=== PATIENT | male | born 1970 | race Caucasian/White ===

== ENCOUNTER 2017-06-27 13:45 | Outpatient (RCR) | payer OTHER ==
--- NOTE | 2017-05-06 16:31 | PT INITIAL EVALUATION ---
MEDICAL DIAGNOSIS: Right hip pain, Strain of R shoulder, initial encounter TREATMENT DIAGNOSIS: same DATE OF ONSET: 01/29/17 SUBJECTIVE: Leo presents to physical therapy with complaints of R hip pain and R shoulder strain that occurred in two different incidents. The shoulder occurred while playing on monkey bars in January and the R hip pain started in 2010, when he was sprinting in the dark and tripped and fell resulting in R hip pain, R shoulder pain, and L elbow pain. He reports that an MRI in 2010 revealed full tears in L elbow, SLAP lesion in R shoulder, and did not receive an MRI for the R hip. He states that the R hip, L elbow, and R shoulder were improving with decreased pain and improved function and most of the time his R hip and L elbow do not bother him. He states that he currently run 6 miles a day 5-6 days a weeks without too much troubles. He states that he did not have any troubles with his R shoulder until he did something on the monkey bars in January 2017. He states that the R shoulder is his main concern and would like to treat the shoulder and have his R hip looked at as well to see what is going one with his hip to prevent further damage. He states that his R shoulder typically does not bother him and if it does he is able to move it a certain direction until he hears a pop and then it feels better. He states that he cannot determine a movement that causes the R shoulder to have increased pain. He reports that he was given an antiinflammatory last week, which has significantly decreased his pain. He rates 0/10 resting pain with R shoulder and R hip. He does report numbness occurring at the 4th and 5th digits occurs when it "pops out." The hip increases pain when he bends forward reaching for an object and usually pops causing an increase in pain. Pain location is Posterior GH joint line and described as sore, achy. Pain scale is 0 on a ten point pain scale. REHAB PROBLEM LIST: Increased Pain Decreased ROM Decreased Strength Decreased Endurance Decreased Function PREVIOUS MEDICAL HISTORY: See EMR OCCUPATION: [employer] with OBJECTIVE: Posture: He demonstrates excellent postural mechanics ROM: R shoulder full AROM into flexion, extension, abduction, scaption, IR, and ER: however, he has end range pain with flexion, scaption, and abduction. R shoulder PROM: full PROM with R shoulder into flexion, abduction, extension, scaption, IR, and ER, however, he has empty end feel with abduction. Strength: R shoulder: flexion, scaption, IR, ER: 4+/5 with no pain. Abduction: 4 /5 with pain. Palpation: TTP: over insertional point of supraspinatus and posterior superior joint line (labrum). Sensation: C2-T2 dermatomes: WNL's bilaterally Special Tests: (-): fermin-kenia, painful arc, multi-instability (sulcus sign ), open can, empty can, neer's, and yocums. (+): anterior/posterior drawer test , apprehension, and relocation, ulnar entrapment. Mobility: Independent Gait: Normal gait mechanics and normal glenohumeral rhythm ASSESSMENT: Leo will benefit from skilled physical therapy addressing the listed impairments to improve function and return to prior level of function. Short Term Goals 4 weeks: Pt will be able to improve strength with R shoulder abduction, IR, and ER from baseline to 5/5 with 0/10 pain to improve function and QOL. 4 weeks : Pt will be able to perform full AROM into R shoulder scaption and abduction with 0/10 end range pain to improve function and QOL. 4 weeks: Pt will be able to improve R shoulder extension with IR AROM from baseline to equal to L shoulder to improve function and QOL. Patient's Goals prevent surgery and strengthening the R shoulder PLAN: Patient to be seen for Manual Therapy/STM/MET Strengthening/condition Ice/Heat Spinal Stabilization Ultrasound Work Hardening/Cond Stretching Iontophoresis Neuromuscular Re-ed Closed Chain Program Electrical Stim Home Exercise Program Therapeutic Activities 2x/Week for 4-6 weeks If you have any questions, comments, or concerns about this report or plan, please contact me at . Thank you, Yoshi Rai, PT, DPT MTDD
[~2017-06-27 13:45] MED LIST: DOXY-179 PO; MELO-207 PO
[2017-07-29] MEDS ORDERED: OSE75 PO (10:05)
[2017-07-29] MEDS ORDERED: MELO-207 PO (10:05)
== END 2017-08-04 ==
LOC: PT 13:45
PROVIDERS: ATTEND Internal Medicine
DX: S46.911A Strain of unspecified muscle, fascia and tendon at shoulder and upper arm level, right arm, initial encounter (principal); M25.551 Pain in right hip; R20.2 Paresthesia of skin; W09.8XXA Fall on or from other playground equipment, initial encounter; W18.40XA Slipping, tripping and stumbling without falling, unspecified, initial encounter
CPT/HCPCS: 97162

== ENCOUNTER 2017-09-15 09:45 | Outpatient (RCR) | payer OTHER ==
--- NOTE | 2017-09-09 17:24 | PT PLAN OF CARE ---
Physician: Krishna Williamson MD Patient is being seen: 1-2x/week Therapist: Yoshi Rai, PT, DPT Medical Diagnosis: Right hip pain, Strain of R shoulder, initial encounter Treatment Diagnosis: same, L shoulder pain Date of Onset: 01/29/17 Date of Initial Evaluation: 05/06/17 Date patient was last seen: 09/09/17 Number of treatments: 7 Number of cancellations/No shows: 0 INTERVENTIONS: Manual Therapy/STM/MET Strengthening/condition Ice/Heat Spinal Stabilization Ultrasound Work Hardening/Cond Stretching Iontophoresis Neuromuscular Re-ed Closed Chain Program Electrical Stim Home Exercise Program Therapeutic Activities GOALS: 4 weeks: Pt will be able to improve strength with R and L shoulder abduction, IR, and ER from baseline to 5/5 with 0/10 pain to improve function and QOL. 4 weeks: Pt will be able to perform full AROM into R shoulder and L shoulder scaption and abduction with 0/10 end range pain to improve function and QOL. 4 weeks: Pt will be able to improve R shoulder and L shoulder extension with IR AROM from baseline to equal to each shoulder to improve function and QOL. PATIENT'S GOAL: prevent surgery and strengthening the R shoulder and L shoulder Status of Patient's Goals: Progressing Patient Compliance: Good Prognosis: Excellent Reasons for continuing therapy: This is a progress note for Leo Leary. He reports that his R hip is doing well and has completely resolved. 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 He reports that he has more pain in his L shoulder than his R shoulder. He denies any resting pain. He reports that he rested his B shoulders and stopped doing pushups. As a result, they have started to feel better. He demonstrated a directional preference with B shoulder extension and IR, however , it did not completely resolve his issue but it did improve the end range pain symptoms that he was feeling. As a result, I believe that it will continue to get better with repeated shoulder extension and IR. Furthermore, it appears that the signs and symptoms are consistent with derangement that should improve quickly as he performs his specific exercise to remove the derangement. As a result, he will benefit from continued PT to address the listed impairments to improve function and QOL for 2x/week for 4 weeks. OBJECTIVE: Posture: He demonstrates excellent postural mechanics ROM: R shoulder full PROM and AROM into flexion, extension, abduction, scaption , IR, and ER: however, he has end range pain with flexion and abduction with abduction more painful than flexion. L shoulder PROM and AROM : full PROM and AROM with L shoulder into flexion, abduction, extension, scaption, IR, and ER, however, he has empty end feel with abduction, flexion, ER with flexion being more painful than abduction. Strength: R and L shoulder: flexion, scaption, IR, ER: 4+/5 with no pain. Abduction: 4/5 with pain. Palpation: TTP: over insertional point of supraspinatus and posterior superior joint line (labrum). Sensation: C2-T2 dermatomes: WNL's bilaterally Special Tests: (-): fermin-kenia, painful arc, multi-instability (sulcus sign ), open can, empty can, neer's, and yocums (on R shoulder). (+): anterior/ posterior drawer test, apprehension, and relocation (on R shoulder). (+) fermin-kenia, painful arc, multi-instability (sulcus sign), open can, empty can, neer's, and yocums (on L shoulder). Mobility: Independent Gait: Normal gait mechanics and normal glenohumeral rhythm If you have any questions, please contact me at [phone]. Thank you, Yoshi Rai, PT, DPT MTDD
[~2017-09-15 09:45] MED LIST changes: +OSE75 PO
== END 2017-09-15 18:00 | disposition home or self-care (01) ==
LOC: PT 09:45
PROVIDERS: ATTEND Internal Medicine
DX: S46.911A Strain of unspecified muscle, fascia and tendon at shoulder and upper arm level, right arm, initial encounter (principal); M25.551 Pain in right hip; R20.2 Paresthesia of skin; W09.8XXA Fall on or from other playground equipment, initial encounter; W18.40XA Slipping, tripping and stumbling without falling, unspecified, initial encounter; M25.512 Pain in left shoulder

== ENCOUNTER → 2017-11-17 | Outpatient (CLI) | payer OTHER ==
--- NOTE | 2017-11-17 15:46 | RADIOLOGY IMAGING REPORT ---
FACILITY: [facility] - [place] PATIENT NAME: Leo Leary : 1970 MR: [id number] V: [id number] EXAM DATE: ORDERING PHYSICIAN: NEAL HAMM TECHNOLOGIST: Location: [facility] Patient: Leo Leary : 1970 Visit/Account:[id number] Date of Sevice: 11/17/2017 Exam type: ANKLE 3 VIEW MIN RIGHT History: Ankle sprain x6 months, Comparison: None. Findings: There is mild soft tissue spine over the posterior aspect right ankle. There is no evidence of acute fracture or dislocation. Ankle mortise appears intact. No significant arthritic changes seen IMPRESSION: 1. Mild soft tissue swelling over the posterior aspect right ankle although no evidence of acute fra cture or dislocation seen Report Dictated By: Stefanie Richards MD at 11/17/2017 3:40 PM Report E-Signed By: Stefanie Richards MD at 11/17/2017 3:41 PM WSN:[email or web address]
== END ==
LOC: RAD 14:19
PROVIDERS: ATTEND Internal Medicine
DX: M25.471 Effusion, right ankle (principal)

== ENCOUNTER → 2018-05-17 | Outpatient (CLI) | payer OTHER ==
[~2018-05-17] MED LIST changes: +FLU60VIA41 IM
[2018-05-17 07:46] LABS: PLATELET COUNT, AUTOMATED 182 K/uL (150-450)
[2018-05-17 08:33] LABS: LDL CHOLESTEROL 114 mg/dl
== END ==
LOC: LAB 07:31
PROVIDERS: ATTEND Internal Medicine
DX: Z00.00 Encounter for general adult medical examination without abnormal findings (principal); M25.511 Pain in right shoulder; G47.9 Sleep disorder, unspecified
CPT/HCPCS: 36415; 81001; 82040; 82247; 82310; 82374; 82435; 82465; 82565; 82947; 83718; 84075; 84132; 84153; 84155; 84295; 84443; 84450; 84460; 84478; 84520; 85025

== ENCOUNTER → 2018-06-29 | Outpatient (CLI) | payer OTHER | LOC: RESP 20:57 | PROVIDERS: ATTEND Internal Medicine | DX: G47.30 Sleep apnea, unspecified (principal); G47.61 Periodic limb movement disorder ==

== ENCOUNTER 2018-11-02 00:40 | Day surgery (SDC) | payer OTHER ==
[2018-11-01 14:42] VITALS: BP 114/72
[~2018-11-02] VITALS: Ht 180.3 cm; Wt 71.2 kg
[2018-11-02] VITALS (8 sets, daily range): BP systolic 114–129; BP diastolic 72–97
[2018-11-02] MEDS ORDERED: LIDOCAINE 2% IV 100 MG/5ML SYR ONE (11:14)
[2018-11-02] MEDS ORDERED: fentaNYL CITR 100 MCG/2 ML AMP ONE ×3 (11:14→13:05)
[2018-11-02] MEDS ORDERED: PROPOFOL EMUL(*) 10MG/ML 20 ML 20 ML ONE (11:15)
[2018-11-02 11:44] LABS: PLATELET COUNT, AUTOMATED 195 K/uL (150-450)
[2018-11-02] MEDS ORDERED: ROPIVACAINE 0.5% 20 ML VIAL ONE (11:56)
[2018-11-02] MEDS ORDERED: NORMOSOL R SOLN(*) 1000 ML BAG 1,000 ML IV PRN (12:15)
[2018-11-02] MEDS ORDERED: LIDOCAINE/SOD BICARB 8.4% SYR ID ONE (12:15)
[2018-11-02] MEDS ORDERED: MIDAZOLAM 2 MG/2 ML VIAL IVP PRN (12:15)
[2018-11-02] MEDS ORDERED: FAMOTIDINE 20 MG TAB PO ONE (12:15)
[2018-11-02] MEDS ORDERED: PROPOFOL EMUL(*) 10MG/ML 20 ML 40 ML ONE (12:20)
[2018-11-02] MEDS ORDERED: ONDANSETRON 4 MG/2 ML VIAL ONE (13:06)
[2018-11-02] MEDS ORDERED: DEXAMETHASONE SOD 4 MG/ML VIAL ONE (13:06)
[2018-11-02] MEDS ORDERED: TRAM-420 PO (13:49)
[2018-11-02] MEDS ORDERED: DOCU-416 PO (13:49)
--- NOTE | 2018-11-02 13:51 | Short(Outpt) Discharge Summary ---
Discharge Summary Reason for Hosp/Final Diag: (1) Subcutaneous nodule Status: Chronic Hospital Course & Plan: 4 subcutaneous nodules removed without problems. Departure Discharge to: Home, Self Care Discharge Instructions Home Meds Active Scripts Docusate Sodium (COLACE) 100 Mg Capsule, 1 CAP PO BID, #30 CAP 0 Refills TAKE WITH A FULL GLASS OF WATER Prov:PORTIA CHONG MD 11/02/18 Tramadol Hcl (TRAMADOL HCL) 50 Mg Tablet, 1 TAB PO Q4H PRN for PAIN, #20 TAB 0 Refills Prov:PORTIA CHONG MD 11/02/18 Follow up Referrals: General Surgery - 11/15/18 @ Surgery, General with PORTIA CHONG MD You have a follow up appointment scheduled with Dr. Chong on 11/15/18, at 3:45pm. Diet: Regular Activity: As Tolerated Special Instructions: You may remove the white surgical dressings on 11/04/18, then you can shower. After showering, leave the incisions open to air but leave the steristrips in place until they fall off on their own. Do not immerse the incisions for 2 weeks. PORTIA CHONG MD Nov 02, 2018 13:51
--- NOTE | 2018-11-02 13:59 | Post Operative Progress Note ---
Post Operative Progress Note Date: Nov 02, 2018 Time: 13:51 Surgeon: Pradeep Dictation number: [id number] Anesthesia: GETA by Dr. Carmona Pre-Op Diagnosis: Subcutaneous nodules x4 (left breast, left costal margin, left hip, left buttock) Post-Op Diagnosis: TONEY Findings: C/W lipomas Procedure(s): Excision of 4 subcutaneous nodules Specimen Removed:(May be N/A): 1) subcutaneous nodule, left breast 2) " " left costal margin 3) " " left hip 4) " " left buttock Complications: None Fluids: See anesthesia record Estimated Blood Loss: Minimal Date OP Note Dictated: Nov 02, 2018 Time OP Note Dictated: 13:54 PORTIA CHONG MD Nov 02, 2018 13:59
--- NOTE | 2018-11-02 14:16 | OPERATIVE REPORT 1 ---
EVENT DATE: November 02, 2018 SURGEON: Lavon Fernández MD ANESTHESIOLOGIST: Santi Carmona MD ANESTHESIA: General endotracheal. PREOPERATIVE DIAGNOSIS Subcutaneous nodules times 4. POSTOPERATIVE DIAGNOSIS Subcutaneous nodules times 4. PROCEDURE PERFORMED Excision of four subcutaneous nodules, one from the left breast, one from the left costal margin, one from the left hip, one from the left buttock. COMPLICATIONS None. CONDITIONS Stable. ESTIMATED BLOOD LOSS Minimal. INDICATIONS This is a 48-year-old gentleman who presented to my office with four subcutaneous nodules and he was requesting to have them removed. DESCRIPTION OF PROCEDURE The patient was brought to the operating room and on the gurney, general endotracheal anesthesia was administered. His left chest and abdomen were prepped and draped in sterile fashion. A timeout was completed. I had previously marked where the subcutaneous nodules were in the preop area with his conformation and these were the correct operative sites and then I anesthetized the skin over each nodule and then made transverse incisions that were each about 12 mm in length over each nodule. I dissected through the dermis and subcutaneous fat, dissected around the nodules and then removed them from the wounds. They were all consistent with a benign lipomas. They were irrigated and dried and then the incisions were closed with interrupted 3-0 Vicryl deep dermal sutures and 4-0 Monocryl running subcuticular sutures. The skin was cleaned and dried and Steri-Strips were applied, followed by sterile surgical dressings. The patient was then rolled into a prone jackknife position on the operating room table and his buttocks were prepped and draped in sterile fashion. I then injected the skin overlying the left buttock nodule and then made a 12 mm incision overlying this, and dissected through the dermis and subcutaneous fat, bluntly dissected around the nodule and removed it from the wound, irrigated the wound, closed the incision with interrupted 3-0 Vicryl deep dermal sutures, and 4-0 Monocryl running subcuticular sutures. The skin was cleaned, dried and Steri-Strips were placed followed by a sterile surgical dressing. The patient was then rolled supine again, awakened, extubated, and transferred to the recovery room in stable condition having tolerated the procedure without any apparent problems. JAREN
[2018-11-02] MEDS ORDERED: traMADol 50 MG TAB PO ONE (15:10)
== END 2018-11-02 14:35 | disposition home or self-care (01) ==
LOC: OR 00:40
PROVIDERS: ATTEND Surgery
DX: R22.2 Localized swelling, mass and lump, trunk (principal); R22.42 Localized swelling, mass and lump, left lower limb
CPT/HCPCS: 19120; 21555; 27327; 85025; 88305; J1100; J2001; J2405; J2704; J2795; J3010

== ENCOUNTER → 2019-01-03 | Outpatient (CLI) | payer OTHER ==
[~2019-01-03] MED LIST changes: +CYCL10TA29 PO; +DOCU-416 PO; +HYDR30SU11 RC; +IBUP800T37 PO; +TRAM-420 PO
[2019-01-03 16:55] LABS: PLATELET COUNT, AUTOMATED 197 K/uL (150-450)
[2019-01-03 17:05] LABS: LDL CHOLESTEROL 95 mg/dl
--- NOTE | 2019-01-03 17:20 | RADIOLOGY IMAGING REPORT ---
FACILITY: [facility] - [place] PATIENT NAME: Leo Leary : 1970 MR: [id number] V: [id number] EXAM DATE: ORDERING PHYSICIAN: NEAL HAMM TECHNOLOGIST: Location: [facility] [place] Patient: Leo Leary : 1970 Visit/Account:[id number] Date of Sevice: 01/03/2019 Exam type: CERVICAL SPINE 2 OR 3 VIEW History: X-ray mostly on the left Comparison: None. Findings: Three views of the cervical spine demonstrate C1 C7 in gross anatomic alignment without evidence of a cute fractures or subluxations other than a 2 mm retrolisthesis of C3 with respect to C4 which is lik ja on a degenerative basis. There is very mild disc space narrowing at C5-6. There is no evidence of prevertebral soft tissue swelling. IMPRESSION: 1. Mild spondylotic changes of the cervical spine as described above. If patient's symptoms persist MR may be helpful Report Dictated By: Stefanie Richards MD at 01/03/2019 5:15 PM Report E-Signed By: Stefanie Richards MD at 01/03/2019 5:16 PM WSN:[email or web address]
--- NOTE | 2019-01-05 11:09 | EKG ---
FACILITY: [facility] - [place] PATIENT NAME: KIRBY CERVANTES : [id number] MR: [id number] V: [id number] EXAM DATE: ORDERING PHYSICIAN: NEAL HAMM TECHNOLOGIST: KAYLA Test Reason : HEART PALPITATIONS Blood Pressure : / mmHG Vent. Rate : 059 BPM Atrial Rate : 059 BPM P-R Int : 188 ms QRS Dur : 090 ms QT Int : 430 ms P-R-T Axes : -19 062 023 degrees QTc Int : 425 ms Sinus bradycardia Otherwise normal ECG No previous ECGs available Confirmed by PROTIA RYDER ([id number]) on 01/05/2019 4:01:40 PM Referred By: JOSUE Confirmed By:PORTIA RYDER
== END ==
LOC: RAD 16:28
PROVIDERS: ATTEND Internal Medicine
DX: S16.1XXA Strain of muscle, fascia and tendon at neck level, initial encounter (principal)
CPT/HCPCS: 36415; 72040; 82040; 82247; 82310; 82374; 82435; 82465; 82565; 82947; 83718; 84075; 84132; 84155; 84295; 84443; 84450; 84460; 84478; 84520; 85025

== ENCOUNTER → 2019-01-29 | Outpatient (CLI) | payer OTHER ==
[~2019-01-29] MED LIST changes: +CEFPR500PT PO; +METH4TAB66 PO
== END ==
LOC: AUD 13:00
PROVIDERS: ATTEND Physician Assistant
DX: H69.83 Other specified disorders of Eustachian tube, bilateral (principal); H93.13 Tinnitus, bilateral
CPT/HCPCS: 92557; 92570

== ENCOUNTER → 2019-02-12 | Outpatient (CLI) | payer OTHER ==
--- NOTE | 2019-02-12 08:50 | RADIOLOGY IMAGING REPORT ---
FACILITY: [facility] - [place] PATIENT NAME: Leo Leary : 1970 MR: [id number] V: [id number] EXAM DATE: ORDERING PHYSICIAN: RHIANNON DE JESUS TECHNOLOGIST: Location: [facility] Patient: Leo Leary : 1970 Visit/Account:[id number] Date of Sevice: 02/12/2019 CT SINUS W/O CON History: chronic sinusitis COMPARISON STUDIES: none TECHNIQUE: Axial images were obtained through the paranasal sinuses. Coronal reformatted images wer e obtained from the axial source data. No IV contrast was administered. One of the following dose opt imization techniques was utilized in the performance of this exam: Automated exposure control; adjust ment of the mA and/or kV according to the patient's size; or use of an iterative reconstruction tech nique. Specific details can be referenced in the facility's radiology CT exam operational policy. FINDINGS: Osseous structures: There is a very small leftward septal spur ( coronal image 50) which does not ap pear to be physiologically significant. Osseous structures are unremarkable. There is no sinus wall thickening to confirm history chronic sinusitis. Sinuses: Sinuses are well-aerated. No evidence of air-fluid levels or mucoperiosteal thickening. Soft Tissues: Negative. Orbits: Normal. Visualized brain: negative IMPRESSION: Unremarkable study. No evidence of acute sinusitis. Report Dictated By: Ray Casiano MD at 02/12/2019 8:39 AM Report E-Signed By: Ray Casiano MD at 02/12/2019 8:44 AM WSN:[email or web address]
== END ==
LOC: CT 01:02
PROVIDERS: ATTEND Physician Assistant
DX: J32.9 Chronic sinusitis, unspecified (principal)
CPT/HCPCS: 70486

== ENCOUNTER → 2019-02-15 | Outpatient (CLI) | payer OTHER ==
--- NOTE | 2019-02-15 15:11 | RADIOLOGY IMAGING REPORT ---
FACILITY: [facility] - [place] PATIENT NAME: Leo Leary : 1970 MR: [id number] V: [id number] EXAM DATE: ORDERING PHYSICIAN: NEAL HAMM TECHNOLOGIST: Location: [facility] - [place] Patient: Leo Leary : 1970 Visit/Account:[id number] Date of Sevice: 02/15/2019 Lumbar spine Indication: Acute low back pain without sciatica Comparison: None available FINDINGS: 3 views of the lumbar spine were obtained. There are 5 lumbar type vertebral bodies. There is no acute osseous or acute alignment abnormality. No evidence of spondylolisthesis or spondylolysis. The vertebral body heights appear well-maintained. IMPRESSION: 1. No acute osseous or acute alignment abnormality of the lumbar spine. Report Dictated By: Kristian Mohamud at 02/15/2019 3:00 PM Report E-Signed By: Kristian Mohamud at 02/15/2019 3:04 PM WSN:[email or web address]
== END ==
LOC: RAD 14:30
PROVIDERS: ATTEND Internal Medicine
DX: M54.5 Low back pain (principal)
CPT/HCPCS: 72100